=== PATIENT | male | born 1945 | race Caucasian/White ===

== ENCOUNTER 2024-07-05 23:47 | Inpatient (IN) | payer OTHER, SELFPAY ==
[2024-07-05 20:41] LABS: Glucose - Point of Care 111 mg/dl (70-99)
[2024-07-05 20:42] VITALS: BP 137/90
[2024-07-05 20:49] VITALS: BMI 43.3
[2024-07-05 20:53] LABS: % Basophils 0.5 % (0-2); % Eosinophils 2.2 % (0-6); % Immature Granulocytes 0.1 % (0-0.5); % Lymphocytes 27.7 % (20.5-51.1); % Monocytes 8.6 % (1.7-9.3); % Neutrophils 60.9 % (42.2-75.2); Absolute Eosinophils 0.2 10^3/uL (0-0.7); Absolute Lymphocytes 2.2 10^3/uL (1.2-3.4); Absolute Monocytes 0.7 10^3/uL (0.1-0.6); Absolute Neutrophils 4.9 10^3/uL (1.4-6.5); Hematocrit 40.2 % (39.0-52.0); Hemoglobin 13.7 g/dL (13.0-18.0); Mean Corp Hgb Conc. 34.1 g/dL (33.0-37.0); Mean Corpuscular Hgb 30.6 pg (27.0-31.0); Mean Corpuscular Volume 89.9 fL (80.0-94.0); Mean Platelet Volume 10.2 fL (7.4-10.4); Nucleated Red Blood Cells % 0 % (-); Platelet Count 162 10^3/uL (130-400); Red Blood Cell Count 4.47 10^6/uL (4.70-6.10); Red Cell Dist. Width 13.4 % (11.5-14.5); White Blood Cell Count 8.1 10^3/uL (4.8-10.8)
[2024-07-05 21:00] VITALS: BP 123/71
[2024-07-05 21:16] LABS: NT-proBNP 944 pg/ml; Troponin I 0.032 ng/ml
[2024-07-05 21:40] VITALS: BP 147/93
[2024-07-05 21:58] VITALS: BP 142/89
[2024-07-05 22:13] LABS: Free T4 0.91 ng/dl (0.78-2.19)
[2024-07-05 22:17] LABS: ALT (SGPT) 26 U/L (0-50); AST (SGOT) 28 U/L (17-59); Albumin 4.4 g/dl (3.5-5.0); Alkaline Phosphatase 63 U/L (38-126); Blood Urea Nitrogen 29 mg/dl (9-20); Calcium 9.8 mg/dl (8.4-10.2); Carbon Dioxide 20 mmol/L (22-30); Chloride 105 mmol/L (98-107); Estimated Creatinine Clearance 82 ml/min; Glucose 114 mg/dl (70-99); Magnesium 2.1 mg/dl (1.6-2.3); Potassium 3.9 mmol/L (3.5-5.1); Sodium 139 mmol/L (135-145); Total Bilirubin 0.5 mg/dl (0.2-1.3); Total Protein 7.1 g/dl (6.3-8.2); eGFR > 60.00
[2024-07-05 22:30] VITALS: BP 159/90
[2024-07-05 22:54] LABS: Urine Albumin Trace (Neg - Trace); Urine Bilirubin Negative (Negative); Urine Character Clear (Clear); Urine Color Yellow; Urine Glucose Negative (Negative); Urine Ketone Negative (Negative); Urine Leukocyte 2+ (Negative); Urine Nitrite Positive (Negative); Urine Occult Blood Negative (Negative); Urine Specific Gravity 1.025 (<1.030); Urine Urobilinogen Negative (Neg - 1+)
[2024-07-05 23:01] LABS: Urine Bacteria Moderate (Negative); Urine Red Blood Cell 0-2 /HPF (0-2)
--- NOTE | 2024-07-05 23:05 | ED.GENMED ---
History of Present Illness
General
Chief Complaint: Dizziness
Time Seen by Provider: 07/05/24 21:54
History of Present Illness
History of Present Illness:
Patient is a 78-year-old man who is otherwise healthy presenting to the emergency department with a near syncopal event. 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 He states that after he was done
working him and his coworker sat down he had 2 shots of tequila and drank 2 beers. He then became lightheaded dizzy and almost passed out. Medics arrived he was diaphoretic with a blood pressure in the 80s. They gave him a liter of fluids. His
blood sugar was normal. He states that he is unsure as to why he passed out. He did not eat much throughout the day. However when he did arrive it was noticed that his heart rate was in the 40s. He also notes he has been having worsening edema
to his bilateral lower extremities for the past few weeks. He is also been having some urinary frequency and does have history of UTI. No chest pain. No shortness of breath. No problems with his thyroid. He only drinks occasionally. No long
car rides or long plane rides. No hemoptysis travel or malignancy.
Past History
Past History
ED Past Medical History: None
ED Past Surgical History: None
Social History
Tobacco: Non-smoker
Alcohol: None
Drug: None
Phy Exam
Physical Exam
Physical Exam:
GENERAL: in no acute distress
HEENT: normocephalic, extraocular movements intact, moist oral mucosa
NECK: normal inspection
RESPIRATORY: no respiratory distress, fine crackles at the bases
CARDIOVASCULAR: Irregularly irregular in the 50s
ABDOMEN/: soft, non-distended, non-tender to palpation, no rebound or guarding
EXTREMITIES: non-tender, mild edema bilaterally at the ankles
NEUROLOGIC: awake and alert, moves all extremities
SKIN: warm
Course
Orders/Labs/Results
Orders:
Orders
07/05/24 20:39
Electrocardiogram (*1) Urgent
Reason for Study: Chest Pain
EKG- Treatment ONCE
07/05/24 20:48
BNP [NT-proBNP] Urgent
Complete Blood Count/With Diff Urgent
Free T4 Urgent
TSH Reflex To Free T4 Urgent
Comment: ADD ON
Troponin I Routine
07/05/24 20:58
CXR2 [CR Chest - 2 Views ] Urgent
Comment:
Reason For Exam: DIZZY
07/05/24 20:59
Add On- LAB Urgent
Comments:: MAGNESIUM, TSH WITH REFLEX TO FREE T4
Tests Added?: MAGNESIUM, TSH WITH REFLEX TO FREE T4
07/05/24 21:45
Comprehensive Metabolic Panel Urgent
Magnesium Urgent
07/05/24 22:43
Urinalysis Reflex To Culture Urgent
Date Specimen was Collected: 07/05/24
Time Specimen was Collected: 22:38
Urine Microscopic Reflex Cult Urgent
Urine Culture Urgent
[place] Source: U
Specimen Description:
Date Specimen was Collected: 07/05/24
Time Specimen was Collected: 22:38
07/05/24 23:09
CefTRIAXone [Rocephin] 1,000 mg IV NOW STA
Abnormal Lab Results
07/05/24 07/05/24 07/05/24
20:39 20:48 21:45
RBC 4.47 L 10^6/uL
(4.70-6.10)
Absolute Monos (auto) 0.7 H 10^3/uL
(0.1-0.6)
Carbon Dioxide 20 L mmol/L
(22-30)
BUN 29 H mg/dl
(9-20)
Glucose 114 H mg/dl
(70-99)
TSH (Reflex) 10.50 H uIU/ml
(0.47-4.68)
Urine Nitrite (Reflex)
Leukocyte Esterase Rfl
Urine WBC (Reflex)
Urine Bacteria (Reflex)
POC Glucose 111 H mg/dl
(70-99)
07/05/24
22:43
RBC
Absolute Monos (auto)
Carbon Dioxide
BUN
Glucose
TSH (Reflex)
Urine Nitrite (Reflex) Positive A
(Negative)
Leukocyte Esterase Rfl 2+ A
(Negative)
Urine WBC (Reflex) 11-15 A /HPF
(0-5)
Urine Bacteria (Reflex) Moderate A
(Negative)
POC Glucose
07/05/24 20:48
07/05/24 21:45
Vital Signs
Initial and Last Documented VS:
Initial Vital Signs
Temp Pulse Resp BP Pulse Ox
98.1 F 53 18 137/90 97
07/05/24 20:42 07/05/24 20:42 07/05/24 20:42 07/05/24 20:42 07/05/24 20:42
Last Documented Vital Signs
Temp Pulse Resp BP Pulse Ox
98.1 F 66 16 142/89 97
07/05/24 20:42 07/05/24 22:00 07/05/24 22:00 07/05/24 21:58 07/05/24 22:00
MDM/Problems Addressed
Differential Diagnosis Includes:
Patient is a 78-year-old man presenting to the emergency department with a near syncopal episode as well as leg swelling and urinary frequency. His vitals are notable for being in A-fib per my interpretation of the monitor with a heart rate
anywhere from the 40s to the 60s. Exam does show crackles at the bases as well as edema. Concern for new onset heart failure, A-fib, thyroid disease, metabolic abnormality, UTI. The syncope certainly could have been the A-fib with slow RVR or
could be orthostatics or secondary to the alcohol. History and exam not consistent with PE as he is not hypoxic or tachycardic or hypotensive and does not have any risk factors. Blood work per my interpretation is notable for elevated BNP. Will
obtain delta troponin.. His urine is positive. Given he is been having urinary frequency will treat. Chest x-ray per my interpretation with some vascular congestion. Patient will need admission. discussed the case with hospitalist who accepted
patient to their service.
*Critical Care Note
Total Time (30-74mins, 75-104mins- exclusive of procedures): Not Applicable
ED Attending Note
-
Portions of this chart may have been created with voice recognition software.� Occasional wrong word or��sound alike� substitutions may have occurred due to the inherent limitations of voice recognition software.
Discharge Plan
Departure
Patient Disposition: Admit
Date of Disposition: 07/05/24
Time of Disposition: 23:08
Presentation/result/management discussed w/ accepting MD/DO: Hospitalist
Discharge Problem:
Pulmonary edema, A-fib, Acute UTI
Prescriptions:
No Action
No Current Medications
0
Referrals:
Kristi Laurent PA-C [Family Provider] -
Interventions
Interventions:
*Risk Screen - Suicide Last Done: 07/05/24 20:50
*General Assessment Last Done: 07/05/24 20:50
*Neglect/Abuse Screening Last Done: 07/05/24 20:50
ED- Fall Risk Assessment Last Done: 07/05/24 20:50
*ED COVID-19 Vaccine History Last Done: 07/05/24 20:50
Discharge Date and Time
Print Language: FRENCH
--- NOTE | 2024-07-05 23:23 | EDRN ---
Patients Daughter Jessica Boudreaux contact # [phone]
--- NOTE | 2024-07-05 23:29 | HPS.HSE ---
Family Physician
-
Family Physician: Kristi Laurent
Chief Complaint
-
almost passed out or passed out
History of Present Illness
78M No sig PMHx seen at ER for near syncopal event.
- he is drinking all day in the heat, then was done working sat down he had 2 shots of tequila and drank 2 beers.
- became lightheaded dizzy and almost passed out.
- upon EMS arrival he was diaphoretic with a blood pressure in the 80s - EMS gave 1 liter of fluids.
- BG was normal
- unsure as to why he passed out
- He did not eat much throughout the day
- noticed that his heart rate was in the 40s
- worsening edema to his bilateral lower extremities for the past few weeks
- some urinary frequency with HX UTI.
ROS:
No chest pain. No shortness of breath. No problems with his thyroid. H
No long car rides or long plane rides.
No hemoptysis travel or malignancy.
Medical History
Past Medical History
Past Medical History: Reports None
Past Surgical History: Reports None
Social History
Tobacco: Non-smoker
Alcohol: Occasional
Drug: None
Personal: Single
Living: Alone
Family History
Family History: Not pertinent
Allergies / Home Medications
Allergies reflects when Allergies were last updated in [employer].
Home Medications with original date entered in [employer]
Allergy/Medication List:
Allergies
Allergy/AdvReac Type Severity Reaction Status Date / Time
No Known Allergies Allergy Verified 07/05/24 20:42
Home Medications
No Meds [No Current Medications] 07/05/24
Review of Systems
-
Constitutional: Reports No Symptoms
EENT: Reports No Symptoms
Respiratory: Reports No Symptoms
Cardiac: Reports Syncope (near syncope ); Denies Chest Pain
Abdomen/GI: Reports No Symptoms
: Reports No Symptoms
Musculoskeletal: Reports No Symptoms
Skin: Reports No Symptoms
Neurological: Reports Dizzy
Endocrine: Reports No Symptoms
Hematologic/Lymphatic: Reports No Symptoms
Psych: Reports No Symptoms
Physical Exam
Vital Signs
Vital Signs
Temp Pulse Resp BP Pulse Ox
98.1 F 66 16 142/89 97
07/05/24 20:42 07/05/24 22:00 07/05/24 22:00 07/05/24 21:58 07/05/24 22:00
Physical Exam
General: Well Developed, Well Nourished and No Apparent Distress
HEENT: NormoCephalic, Moist mucous membranes and Atraumatic
Respiratory: Clear
Cardiac: S1/S2 and Regular Rhythm; No Murmur or Rub
GI: Soft, Non Tender, Non Distended and Normal Bowel Sounds; No Organomegaly
Rectal: Deferred by Provider
Musculoskeletal: No Clubbing, No Cyanosis and No Edema
Skin: No Rash
Neuro: Nonfocal/grossly intact
Laboratory Results
-
07/05/24 20:48
07/05/24 21:45
Laboratory Results
Total Bilirubin 0.5 mg/dl (0.2-1.3) 07/05/24 21:45
AST 28 U/L (17-59) 07/05/24 21:45
ALT 26 U/L (0-50) 07/05/24 21:45
Alkaline Phosphatase 63 U/L (38-126) 07/05/24 21:45
Troponin I 0.032 ng/ml 07/05/24 20:48
Data Reviewed
-
Diagnostic Radiology: Report Reviewed by me
Medical Tests (Nuc Med, Echo, EKG etc): Report Reviewed by me
Lab Data: Labs Reviewed by me
Impression/Plan
-
Data
Unremarkable CBC
CO2 20
BUN 29
Cr 1.1
eGFR > 60
TPNI 0.032
pro BNP 994
UA POS WCC , Mod bacteria
CXR: No acute disease of the chest.
EKG
ATRIAL FIBRILLATION WITH SLOW VENTRICULAR RESPONSE
INCOMPLETE RIGHT BUNDLE BRANCH BLOCK
LEFT ANTERIOR FASCICULAR BLOCK
MINIMAL VOLTAGE CRITERIA FOR LVH, MAY BE NORMAL VARIANT ( R in aVL )
INFERIOR INFARCT , AGE UNDETERMINED
ABNORMAL ECG
WHEN COMPARED WITH ECG OF 03-MAY-1993 07:45,
ATRIAL FIBRILLATION HAS REPLACED SINUS RHYTHM
LEFT ANTERIOR FASCICULAR BLOCK IS NOW PRESENT
NON-SPECIFIC CHANGE IN ST SEGMENT IN INFERIOR LEADS
NONSPECIFIC T WAVE ABNORMALITY NOW EVIDENT IN ANTEROLATERAL LEADS
10/18/23 TTE
Normal left ventricular size, wall thickness and systolic function.
No regional wall motion abnormalities are seen.
Estimated ejection fraction is 50- 55% by Swenson's method of discs. Diastolic function indeterminate.
Normal right ventricular size and function.
Mild tricuspid regurgitation. Estimated pulmonary artery pressure of 30-35 mmHg.
ASSESSMENT & PLAN
Syncope vs near syncope suspect cardiac syncope vs. vasovagal in setting ETOH and environenmtal heat exposure
POS prodromal symptoms plus hypotension and bradycardia
Prior Nl LVEF and Nl RV function
- No hemodynamically significant valvular patholgy
- supportive care with IVF
- fall precaution
New onset AF with slow VR
- DCA card evaluation for AC
Abn first TPNI suspect NIMI > NSTEMI
- no CP. No SoB
- Trend TPNI
- await Card evaluate
Abnormal UA suggestive UTI
- UCX
- agree with IV CFTZ
Obesity
DVT Px: LMWH
Code: Full
IP TLM
[2024-07-05 23:30] VITALS: BP 140/101
[2024-07-05] MEDS: ROCEPHIN 1000 MG IV (23:30)
[2024-07-06] VITALS (8 sets, daily range): BP systolic 127–182; BP diastolic 66–89; BMI 42.4; BMI 42.6
[2024-07-06 01:20] LABS: Troponin I 0.026 ng/ml
[2024-07-06] MEDS: NSS 1000 IV ×2 (01:33→13:55)
--- NOTE | 2024-07-06 02:06 | PTCARENOTE ---
Pt arrived to floor via stretcher from the ED. Pt AAOx3. Pt able to ambulate from stretcher into room without difficulty. Pt denies any lightheadedness/ dizziness. HR in the 60's-70's in Afib on the monitor. POX 94% on RA. Lungs dec @ bases, MADSEN. +
bowel, round obese abd. +2 LE edema. Red warm LE. Weak pedal pulses. Left hand int capped. Right hand int infusing NSS@80ml/hr. Pt reports urinary urgency/ frequency. Pt given Urinal for accurate I/O. pt instructed to ring call [facility] for help. Will
continue to monitor.
[2024-07-06 03:17] LABS: TSH Reflex To Free T4 7.48 uIU/ml (0.47-4.68)
--- NOTE | 2024-07-06 07:40 | CON.CAR ---
Addendum entered and electronically signed by Celso Alex MD 07/06/24 12:15:
78-year-old man with history of PAF, morbid obesity admitted on the with syncope after working in the heat, found to be in atrial fibrillation with hypotension and relative bradycardia. proBNP 944, with superimposed UTI
PMH: PAF, morbid obesity, history of UTIs,
PSH/SH/FH: Reviewed
Allergies none
Medications at admission none
ROS: Negative except as above
Current meds: Ceftriaxone, apixaban 5 mg twice daily
Pulse 58, 179/88, weight 137.7 kg, morbidly obese, no acute distress, head neck exam unremarkable, lungs clear, bradycardic, regular murmurs JVD hard to assess, abdomen morbidly obese, 2+ edema
EKG atrial fibrillation, slow ventricular response, RSR prime, LVH, left anterior fascicular block
Hemoglobin 14.6, BUN and creatinine 23 and 0.9, TSH 7.48, normal free T4, UTI, Troponin 0.028, proBNP 944
Impression:
Syncope, possibly multifactorial, need to rule out symptomatic bradycardia from A-fib
suspected persistent atrial fibrillation with intrinsic AV violetta disease and slow ventricular response
Probable sleep apnea
Plan:
He agrees to anticoagulation. He presents with that could be multifactorial, with underlying AV violetta disease but with the primary special events driver is dehydration and alcohol.
He is bradycardic on telemetry with pauses up to 2.5 seconds, but at this point nothing would mandate pacemaker implantation. We will continue to observe.
Will need to decide on rate control versus rhythm control. Rhythm control could become complex given his AV violetta disease, and he may prefer a simpler strategy. I have
He agrees to anticoagulation.
If he does not have symptomatic bradycardia here in hospital, he will need ambulatory telemetry and may need a LINQ.
Consider diuretics, if we say that he has HFpEF we could consider SGLT2 inhibitor.
Await echocardiography.
Will perform nocturnal pulse oximetry. I suspect he has sleep apnea.
Original Note:
Consultation
Consultation Request
Date/Time Consultation Requested: 07/05/2024
Date/Time Consultation Performed: 07/06/2024
Requesting Provider: Dr. Branham
Performing Provider: Vida Heller PA-C for Dr. Celso Alex
Reason for Consultation: Atrial fibrillation
Medical History
-
History of Present Illness:
Patient is a 78-year-old male with past medical history of paroxysmal atrial fibrillation, reluctant to take anticoagulation, morbid obesity, BPH and osteoarthritis who presented to emergency department 07/05/2024 with syncopal event. 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 After he was done work he had 2 shots of tequila and 2 beers. He became dizzy, lightheaded and had a near syncopal event. He denies losing consciousness. EMS was
called and he was found him to be hypotensive with systolic blood pressure in 80s. Patient was provided IV fluids with improvement of blood pressure. EKG on arrival to emergency department showed atrial fibrillation with slow ventricular response.
Troponin x 2 was undetectable. Patient admits to intermittent edema over the last several weeks. Chest x-ray showed mild cardiomegaly, no pleural effusion. ProBNP 944. He also complained of urinary frequency and UA showed UTI. TSH noted to be
7.48.
Patient admits he has gained significant weight since COVID- pandemic. He denies chest pain, shortness of breath, dizziness or lightheadedness, palpitations, orthopnea or PND on a regular basis.
PMH:
Paroxysmal atrial fibrillation
Morbid obesity
BPH
Osteoarthritis
H/o UTI
Past Medical History
Past Medical History: Other (See HPI)
Past Surgical History: Orthopedic (Meniscus repair)
Social History
Tobacco: Former Smoker (remote as teenager and in 20's)
Alcohol: Occasional
Drug: None
Personal:
Living: With Family
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
Family History
Family History: CAD (Mother CAD/PA)
Allergies / Home Medications
Allergy/AdvReac Type Severity Reaction Status Date / Time
No Known Allergies Allergy Verified 07/05/24 20:42
�Medication �Instructions �Recorded �Confirmed �Type
No Meds [No Current Medications] 07/05/24 07/05/24 History
Review of Systems
-
History Source: Patient
All other systems: Negative unless noted
Physical Exam
Vital Signs
Temp Pulse Resp BP Pulse Ox
97.7 F 75 18 138/85 93
07/06/24 03:12 07/06/24 03:12 07/06/24 03:12 07/06/24 03:12 07/06/24 03:12
GEN: No distress, awake, Ox3, sitting up in bed
HEENT: supple, anicteric, mmm
LUNGS: CTA, no wheezes/rales bilaterally
CV: Irregularly irregular, S1/S2, no murmur, rub or gallop
ABD: Obese, soft, BS+, NT/ND
EXT: No edema, clubbing or cyanosis
NEURO: Gross non-focal
SKIN: Warm, dry, pink
Lab Results
Troponin I Cancelled 07/06/24 17:08
Frl-K-Itueopstnre Pept 944 pg/ml 07/05/24 20:48
Impression / Plan
-
Family Physician: Kristi Laurent
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
Impression:
Presented 07/05/2024 with dizziness/lightheadedness, near syncope
Hypotension likely from dehydration, resolved
UTI
Atrial fibrillation with slow ventricular response
Hypothyroid
Paroxysmal atrial fibrillation
Morbid obesity
BPH
Osteoarthritis
History of UTIs
Echo 10/18/2023: EF 50 to 55%. Mild TR with PAP 30 to 35 mmHg
Plan:
-Presented 07/05/2024 with dizziness/lightheadedness, near syncope and hypotension. Most likely secondary to dehydration. Symptoms and BP improved with IV fluids
-Patient found to be in atrial fibrillation with slow ventricular response. Per review of outpatient records patient has a history of PAF. Unclear if this is persistent or paroxysmal. He has declined anticoagulation in past with primary care
physician.
-Heart rates remain slow/rate controlled despite being on any rate lowering agents. Review of telemetry overnight shows frequent pauses which are asymptomatic greatest 3 seconds. Continue to monitor trend heart rates while awake.
-[id number] score 2 (age >75). Would recommend initiation of anticoagulation. After discussion with patient he is agreeable. Will have case management to cost analysis for OAC.
-Discussed options of rate control and remaining in atrial fibrillation, versus initiation of antiarrhythmic drug therapy versus ablation. For now will start with rate control and anticoagulation. Could consider elective cardioversion after he has
been on anticoagulation for 4 weeks.
-Echo from September 2023 showed preserved ejection fraction and no significant valvular disease.
-Suspect component of obstructive sleep apnea. Admits to gaining over 100 pounds since COVID-19 pandemic. Would benefit from evaluation for obstructive sleep apnea as an outpatient
-TSH elevated at 10.5, repeated 7.48, free T4 0.91. Defer treatment to primary service. May benefit from initiation of Synthroid
-UA suspicious for UTI. Getting antibiotics per primary service
HPI 07/06/2024:
Patient is a 78-year-old male with past medical history of paroxysmal atrial fibrillation, reluctant to take anticoagulation, morbid obesity, BPH and osteoarthritis who presented to emergency department 07/05/2024 with syncopal event. 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 After he was done work he had 2 shots of tequila and 2 beers. He became dizzy, lightheaded and had a near syncopal event. He denies losing consciousness. EMS was
called and he was found him to be hypotensive with systolic blood pressure in 80s. Patient was provided IV fluids with improvement of blood pressure. EKG on arrival to emergency department showed atrial fibrillation with slow ventricular response.
Troponin x 2 was undetectable. Patient admits to intermittent edema over the last several weeks. Chest x-ray showed mild cardiomegaly, no pleural effusion. ProBNP 944. He also complained of urinary frequency and UA showed UTI. TSH noted to be
7.48.
Patient admits he has gained significant weight since COVID- pandemic. He denies chest pain, shortness of breath, dizziness or lightheadedness, palpitations, orthopnea or PND on a regular basis.
Data Reviewed
-
EKG: Report Reviewed by me, Discussed with Physician and Discussed with Patient
Radiology: Report Reviewed by me, Discussed with Physician and Discussed with Patient
Labs: Labs Reviewed by me, Discussed with Physician and Discussed with Patient
Old Records: Reviewed
[2024-07-06 09:24] LABS: Hematocrit 42.1 % (39.0-52.0); Hemoglobin 14.6 g/dL (13.0-18.0); Mean Corp Hgb Conc. 34.7 g/dL (33.0-37.0); Mean Corpuscular Hgb 31.9 pg (27.0-31.0); Mean Corpuscular Volume 92.1 fL (80.0-94.0); Mean Platelet Volume 10.6 fL (7.4-10.4); Platelet Count 168 10^3/uL (130-400); Red Blood Cell Count 4.57 10^6/uL (4.70-6.10); Red Cell Dist. Width 13.4 % (11.5-14.5)
[2024-07-06 09:54] LABS: Troponin I 0.028 ng/ml
[2024-07-06 10:05] LABS: Blood Urea Nitrogen 23 mg/dl (9-20); Calcium 9.5 mg/dl (8.4-10.2); Carbon Dioxide 21 mmol/L (22-30); Chloride 105 mmol/L (98-107); Estimated Creatinine Clearance 99 ml/min; Glucose 110 mg/dl (70-99); Potassium 4.3 mmol/L (3.5-5.1); Sodium 140 mmol/L (135-145); eGFR > 60.00
[2024-07-06] MEDS: ELIQUIS 5 MG PO ×2 (10:18→20:40)
--- NOTE | 2024-07-06 11:49 | CM ---
Addendum entered by Carol Richardson 07/06/24 12:49:
procedure manager reviewed patient's chart and met with patient and patient lives with his spouse and youngest son in a 2 story home, no steps to enter, patient is independent with adl's and ambulation, no dme, classification case manager reached out to patient's
insurance [employer] as requested by cardiology and cost of medication is $47 per month. Eliquis coupon provided to patient.
PCP: Kristi Laurent
Pharmacy: [facility] in [place]
Plan; Home with family when stable.
Original Note:
Cost of Eliquis is a copay of $47, and Xarelto is copay of $47.
--- NOTE | 2024-07-06 12:30 | CM ---
Milka calhoun nreviewed patient's chart and met with patient and eddie webster with his spouse and youngest son in a 2 story home, no steps to enter, eddie is indepdent with adl's and ambulation, no dme, milka walker nreached out to patient's
insurance [employer] as requested by cardiology and cost of medication is $47 per month. Elibrittanyis coupon provided to patient.
PCP: Kristi Laurent
Pharmacy: [facility] in [place]
Plan; Home with family when stable.
--- NOTE | 2024-07-06 18:40 | W.PN.HOSP.TC ---
Today's Communication/Plan
-
await Ur Cx results
timing of dc beyond obtaining Ur cx will be as per Cardio
Assessment / Plan
Assessment / Plan
Syncope vs near syncope suspect cardiac syncope vs. vasovagal in setting ETOH and heat exposure
POS prodromal symptoms plus hypotension and bradycardia
Prior Nl LVEF and Nl RV function
- No hemodynamically significant valvular pathology
- supportive care with IVF
- fall precaution
New onset AF with slow VR
- DCA card evaluation for AC
input of Dr. Alex appreciated
Trop 0.032-->0.026-->0.028
- no CP. No SoB
Abnormal UA suggestive UTI
- UCX pending
- agree with IV CFTZ
Obesity
DVT Px: LMWH
Code: Full
IP TLM
Anticipated Discharge: 24 - 48 hours
Subjective/Interval History
-
Date of Service: July 06, 2024
Awake, alert
Objective Data
-
Labs:
Laboratory Results
07/06/24
09:12
WBC 6.0
Hgb 14.6
Hct 42.1
Plt Count 168
Sodium 140
Potassium 4.3
Chloride 105
Carbon Dioxide 21 L
BUN 23 H
Creatinine 0.9
Glucose 110 H
Calcium 9.5
Vital Signs:
Vital Signs
Temp Pulse Resp BP Pulse Ox
97.7 F 67 18 150/87 96
07/06/24 15:34 07/06/24 15:34 07/06/24 15:34 07/06/24 15:34 07/06/24 15:34
I&O
07/05/24 07/06/24 07/07/24
06:59 06:59 06:59
Intake Total 640 / 640 480 / 480
Output Total 600 / 600 250 / 250
Balance 40 / 40 230 / 230
Review of Systems
-
History Source: Patient and Coordinated Provider
Constitutional: Denies Fever
EENT: Reports No Symptoms Reported
Respiratory: Reports No Symptoms
Cardiac: Reports No Symptoms; Denies Chest Pain
Abdomen/GI: Reports No Symptoms
Neuro: Reports No Symptoms
Physical Exam
-
General: Well Developed, Well Nourished and No Apparent Distress
HEENT: Normocephalic, Atraumatic and Moist Mucous Membranes
Respiratory: Clear to Auscultation; Negative Wheezes, Rales or Rhonchi
Cardiac: S1/S2 and Irregular Rhythm
GI: Nontender and Nondistended
Neuro: Awake, Alert and Oriented
--- NOTE | 2024-07-06 22:08 | RESPNOTE ---
Patient placed on nocturnal pulse oximetry as ordered. Starting SpO2 98% on room air.
[2024-07-06] MEDS: ROCEPHIN 1000 MG IV (23:18)
[2024-07-06] MEDS: STERILE WATER FOR INJECTION 10 ML IV (23:18)
[2024-07-07 03:50] VITALS: BP 152/84
[2024-07-07 05:23] VITALS: BMI 42.6
[2024-07-07 07:00] VITALS: BP 142/71
[2024-07-07] MEDS: ELIQUIS 5 MG PO ×2 (08:22→21:20)
[2024-07-07 11:00] VITALS: BP 178/80
--- NOTE | 2024-07-07 11:48 | W.PN.HOSP.TC ---
Addendum entered and electronically signed by Jason Durham MD 07/07/24 12:07:
call received from dgt and fully reviewed situation
Jessica [phone]
Original Note:
Today's Communication/Plan
-
await Ur C&S
await further input from cardio
Assessment / Plan
Assessment / Plan
Syncope vs near syncope suspect cardiac syncope vs. vasovagal in setting ETOH and heat exposure
POS prodromal symptoms plus hypotension and bradycardia
Prior Nl LVEF and Nl RV function
- No hemodynamically significant valvular pathology
- supportive care with IVF
- fall precaution
New onset AF with slow VR
- DCA card evaluation for AC
input of Dr. Alex appreciated
Echo just completed, not yet resulted
Trop 0.032-->0.026-->0.028
- no CP. No SoB
Abnormal UA suggestive UTI
- UCX still pending
- agree with IV CFTZ
Obesity
attempted to call dgt x2 to update, no answer, left message
DVT Px: LMWH
Code: Full
IP TLM
Anticipated Discharge: 24 - 48 hours
Subjective/Interval History
-
Date of Service: July 07, 2024
Awake, alert, answering questions
Objective Data
-
Vital Signs:
Vital Signs
Temp Pulse Resp BP Pulse Ox
98.3 F 57 20 178/80 97
07/07/24 11:00 07/07/24 11:00 07/07/24 11:00 07/07/24 11:00 07/07/24 11:00
I&O
07/06/24 07/07/24 07/08/24
06:59 06:59 06:59
Intake Total 640 / 640 800 / 800
Output Total 600 / 600 250 / 250
Balance 40 / 40 550 / 550
Review of Systems
-
History Source: Patient and Coordinated Provider
Constitutional: Denies Fever
EENT: Reports No Symptoms Reported
Respiratory: Reports No Symptoms
Cardiac: Reports No Symptoms; Denies Chest Pain
Abdomen/GI: Reports No Symptoms
Neuro: Reports No Symptoms
Physical Exam
-
General: Well Developed, Well Nourished and No Apparent Distress
HEENT: Normocephalic, Atraumatic and Moist Mucous Membranes
Respiratory: Clear to Auscultation; Negative Wheezes, Rales or Rhonchi
Cardiac: S1/S2 and Irregular Rhythm
GI: Nontender and Nondistended
Musculoskeletal: Edema, Right Lower Extrem (trace) and Edema, Left Lower Extrem (trace)
Neuro: Awake, Alert and Oriented
--- NOTE | 2024-07-07 14:08 | W.PN.CARDCBS ---
Addendum entered and electronically signed by Sourav Rojas MD 07/07/24 16:53:
I saw and examined the patient.
The Chief Load Dispatcher's note was reviewed and I agree with the note.
Comment: Briefly, 78-year-old man past medical history of persistent atrial fibrillation who presents following an episode of presyncope
By history patient tells me that he was working in the heat and also consumed alcohol prior to his episode of lightheadedness and dizziness, no eron syncope by his report
By telemetry here has been in persistent atrial fibrillation with slow ventricular response nocturnal pauses of 3 seconds seen
Transthoracic echocardiogram here with ventricular size and function and no significant
Recommend starting anticoagulation for cardioembolic prophylaxis of A-fib
We can arrange for outpatient cardioversion after he has been reliably anticoagulated for 3 to 4 weeks
Consideration of outpatient teletypesetter monitor on discharge
Rest per Laurence Cain
Original Note:
Today's Communication / Plan
-
Echo normal
Remains in rate controlled Afib
Impression / Plan
-
Family Physician: Kristi Laurent
Process Inspector: None prior to admission
Impression:
Presented 07/05/2024 with dizziness/lightheadedness, near syncope
Hypotension likely from dehydration, resolved
UTI
Atrial fibrillation with slow ventricular response on admission
Hypothyroid
Paroxysmal to persistent atrial fibrillation
Morbid obesity
BPH
Osteoarthritis
History of UTIs
Echo 10/18/23: EF 50 to 55%. Mild TR with PAP 30 to 35 mmHg
Echo 07/07/24: EF 55-60%, mild conc LVH, normal RV size and function, mild MR
Plan:
-Syncope on admission in the setting of increased environmental temperatures, reduced PO intake and ETOH intake.
-Orthostatic VS not checked
-Echo without WMA or significant valve disease
-No significant pause on tele review by me. Afib HRs are in the 50s to 60s without rate controlling meds.
-Afib seen on tele, patient with a h/o paroxysmal Afib and previously declined OAC. OAC recommended and patient now agreeable so Eliquis 5 mg BID (age 78, Cre 0.9, wt 138 kg). Appreciate help of CM on checking cost of Eliquis $47/month.
-Could consider elective cardioversion after he has been on anticoagulation for 4 weeks.
-Suspect component of CLYDE and CLYDE management will help with long-term rhythm control of Afib. Admits to gaining over 100 lbs since .
-TSH elevated at 10.5, repeated 7.48, free T4 0.91. Defer treatment to primary service. May benefit from initiation of Synthroid
-Troponin levels normal
HPI 07/06/2024:
Patient is a 78-year-old male with past medical history of paroxysmal atrial fibrillation, reluctant to take anticoagulation, morbid obesity, BPH and osteoarthritis who presented to emergency department 07/05/2024 with syncopal event. 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 After he was done work he had 2 shots of tequila and 2 beers. He became dizzy, lightheaded and had a near syncopal event. He denies losing consciousness. EMS was
called and he was found him to be hypotensive with systolic blood pressure in 80s. Patient was provided IV fluids with improvement of blood pressure. EKG on arrival to emergency department showed atrial fibrillation with slow ventricular response.
Troponin x 2 was undetectable. Patient admits to intermittent edema over the last several weeks. Chest x-ray showed mild cardiomegaly, no pleural effusion. ProBNP 944. He also complained of urinary frequency and UA showed UTI. TSH noted to be
7.48.
Patient admits he has gained significant weight since . He denies chest pain, shortness of breath, dizziness or lightheadedness, palpitations, orthopnea or PND on a regular basis.
Progress Note - Process Inspector
Subjective
Date of Service: July 07, 2024
No chest pain
Objective
Labs:
07/06/24 09:12
07/06/24 09:12
Labs
Hgb 14.6 g/dL (13.0-18.0) 07/06/24 09:12
Hct 42.1 % (39.0-52.0) 07/06/24 09:12
Plt Count 168 10^3/uL (130-400) 07/06/24 09:12
Sodium 140 mmol/L (135-145) 07/06/24 09:12
Potassium 4.3 mmol/L (3.5-5.1) 07/06/24 09:12
BUN 23 mg/dl (9-20) H 07/06/24 09:12
Creatinine 0.9 mg/dL (0.7-1.3) 07/06/24 09:12
Glucose 110 mg/dl (70-99) H 07/06/24 09:12
Troponins
07/05/24 07/06/24 07/06/24
20:48 00:28 01:08
Troponin I 0.032 0.026 Cancelled
07/06/24 07/06/24 07/06/24
09:08 09:12 16:30
Troponin I Cancelled 0.028 Cancelled
07/06/24
17:08
Troponin I Cancelled
Vital Signs and I&O:
Vital Signs
Temp Pulse Resp BP Pulse Ox
98.3 F 57 20 178/80 97
07/07/24 11:00 07/07/24 11:00 07/07/24 11:00 07/07/24 11:00 07/07/24 11:00
Vital Signs
Temp Pulse Resp BP Pulse Ox
98.3 F 57 20 178/80 97
07/07/24 11:00 07/07/24 11:00 07/07/24 11:00 07/07/24 11:00 07/07/24 11:00
Intake & Output
10/13/07/06/24 07/07/24 07/08/24
06:59 06:59 06:59 06:59
Intake Total 640 / 640 800 / 800
Output Total 600 / 600 250 / 250
Balance 40 / 40 550 / 550
Physical Exam
Physical Exam
GEN: AAO x3
HEENT: mmm
LUNGS: No audible wheeze
CV: Afib on tele
ABD: ND
EXT: No edema B/L
NEURO: Gross non-focal
SKIN: No rash
[2024-07-07 15:00] VITALS: BP 117/56
--- NOTE | 2024-07-07 17:26 | CM ---
Spoke with pt at bedside .
Pt is aware of Eliquis cost $47.00 He has first month free Eliquis coupon .
Unsure if pt could use $10.0/ month coupon also.
Offered VN he declined need.
PLAN Home no needs
[2024-07-07 19:27] VITALS: BP 169/99
[2024-07-07 23:04] VITALS: BP 180/87
[2024-07-08] MEDS: STERILE WATER FOR INJECTION 10 ML IV (00:06)
[2024-07-08] MEDS: ROCEPHIN 1000 MG IV (00:07)
[2024-07-08 00:21] VITALS: BP 117/61
[2024-07-08 04:03] VITALS: BP 162/93
[2024-07-08 04:28] VITALS: BMI 42.5
--- NOTE | 2024-07-08 05:48 | DOWNTIME ---
There was a [employer] In[employer] Downtime on 07/08/2024 from 0100 to 07/08/2024 at 0355. Downtime documentation of patient's care, including medication administrations, has been reconciled in the electronic record per guidelines. Refer to the
patient's paper chart under the miscellaneous tab to see printed paper medication records and downtime forms.
[2024-07-08 07:00] VITALS: BP 137/81
[2024-07-08 07:50] VITALS: BMI 42.5
[2024-07-08] MEDS: ELIQUIS 5 MG PO (08:40)
[2024-07-08 11:00] VITALS: BP 152/76
--- NOTE | 2024-07-08 12:46 | W.PN.HOSP.TC ---
Today's Communication/Plan
-
dc now
Assessment / Plan
Assessment / Plan
Syncope vs near syncope suspect cardiac syncope vs. vasovagal in setting ETOH and heat exposure
POS prodromal symptoms plus hypotension and bradycardia
Prior Nl LVEF and Nl RV function
- No hemodynamically significant valvular pathology
- fall precaution
walking around halls with no symptoms
New onset AF with slow VR
- DCA card evaluation for AC
input of Dr. Alex appreciated
Echo: Normal left ventricular size and systolic function. No regional wall motion
abnormalities are seen. LV ejection fraction is 55-60% by Swenson's method of
discs. Mild concentric left ventricular hypertrophy. Diastolic function
indeterminate due to atrial fibrillation.
Normal right ventricular size. Normal right ventricular systolic function.
Moderately dilated left atrium.
Mild mitral regurgitation.
Estimated pulmonary artery pressure of 30-35 mmHg. Assuming a right atrial
pressure of 3 mmHg.
Trop 0.032-->0.026-->0.028
- no CP. No SoB
Abnormal UA suggestive UTI
- UCX mixed onel
- change to oral abx
Obesity
reviewed with Jessica pulido yesterday and again today
DVT Px: LMWH
Code: Full
dc to home
see dictated note
More than 30 minutes spent in discharge including
Final examination of the patient
Summarizing hospital stay
Instructions for continuing care to all relevant caregivers
Preparation of discharge records, prescriptions, and referral forms
Total time spent (in minutes): 45 minutes
Anticipated Discharge: Today
Subjective/Interval History
-
Date of Service: July 08, 2024
Feels well, anxiously awaiting dc
Objective Data
-
Vital Signs:
Vital Signs
Temp Pulse Resp BP Pulse Ox
97.9 F 55 20 152/76 97
07/08/24 11:00 07/08/24 11:00 07/08/24 11:00 07/08/24 11:00 07/08/24 11:00
I&O
07/07/24 07/08/24 07/09/24
06:59 06:59 06:59
Intake Total 800 / 800 2039
Output Total 250 / 250
Balance 550 / 550 2039
Review of Systems
-
History Source: Patient and Coordinated Provider
Constitutional: Denies Fever
EENT: Reports No Symptoms Reported
Respiratory: Reports No Symptoms
Cardiac: Reports No Symptoms; Denies Chest Pain
Abdomen/GI: Reports No Symptoms
Neuro: Reports No Symptoms
Physical Exam
-
General: Well Developed, Well Nourished and No Apparent Distress
HEENT: Normocephalic, Atraumatic and Moist Mucous Membranes
Respiratory: Clear to Auscultation; Negative Wheezes, Rales or Rhonchi
Cardiac: S1/S2 and Irregular Rhythm
GI: Nontender and Nondistended
Musculoskeletal: Edema, Right Lower Extrem (trace) and Edema, Left Lower Extrem (trace)
Neuro: Awake, Alert and Oriented
--- NOTE | 2024-07-08 13:04 | CM ---
Chart reviewed and patient is for possible discharge to home today, no needs.
Plan; Home no needs.
--- NOTE | 2024-07-08 13:37 | W.DS.TRANS ---
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
-
Discharge Instructions:
Sleep Apnea Risk High
Discharge Diagnosis/Procedures Atrial Fibrillation, UTI
Diet As tolerated
Activity No strenuous activity
Driving Restrictions Not until seen by your Dr
Bathing Restrictions None
Blood Work CBC, BMP, Urine in 1-2 weeks
Others Tests -The cardiology office is arranging for a 5 day
monitor to be mailed to you. When you are
finished wearing the monitor it can be mailed
back to the cardiology office in the postage
paid box.
Instructions:
Stand-Alone Forms:
Changes to Home Medications: Yes
Discharge Medications:
DC Medications w/original date entered in [employer]
apixaban 5 mg tablet (Eliquis) 5 mg PO BID Blood clot prevention/tx #60 tabs 07/08/24
cefuroxime axetil 500 mg tablet 500 mg PO Q12H 10 days #20 tabs 07/08/24
polyethylene glycol 3350 17 gram oral powder packet (HealthyLax) 17 g PO DAILYPRN PRN constipation #0 ea 07/08/24
Home Medication Changes
Eliquis is new
Ceftin for next 10 days
Pending Results: No
--- NOTE | 2024-07-08 17:37 | W.PN.CARDCBS ---
Today's Communication / Plan
-
We will arrange for outpatient monitor and cardiology follow up
New to OAC
Consideration of outpatient DCCV
Impression / Plan
-
Family Physician: Kristi Laurent
Aircraft Fuselage Framer: None prior to admission
Impression:
Presented 07/05/2024 with dizziness/lightheadedness, near syncope
Hypotension likely from dehydration, resolved
UTI
Atrial fibrillation with slow ventricular response on admission
Hypothyroid
Paroxysmal to persistent atrial fibrillation
Morbid obesity
BPH
Osteoarthritis
History of UTIs
Echo 10/18/23: EF 50 to 55%. Mild TR with PAP 30 to 35 mmHg
Echo 07/07/24: EF 55-60%, mild conc LVH, normal RV size and function, mild MR
Plan:
-Presenting with presyncope, denies LOC to me
-By history may have been precipitated by dehydration - was working in the heat prior and reports reduced PO intake as well as ETOH intake
-Possible that bradycardia may have contributed as HRs have been 40s-60s in AFib here on tele, but no significant pauses seen
-Echo here was unremarkable
-Plan for outpatient site monitor
-In regards to AFib he is rate controlled off AV violetta rickey
-New to OAC, explained the risks/benefits
-Consider DCCV in 3-4wks
Stable cardiac status
Outpatient follow-up has been arranged
HPI 07/06/2024:
Patient is a 78-year-old male with past medical history of paroxysmal atrial fibrillation, reluctant to take anticoagulation, morbid obesity, BPH and osteoarthritis who presented to emergency department 07/05/2024 with syncopal event. 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 After he was done work he had 2 shots of tequila and 2 beers. He became dizzy, lightheaded and had a near syncopal event. He denies losing consciousness. EMS was
called and he was found him to be hypotensive with systolic blood pressure in 80s. Patient was provided IV fluids with improvement of blood pressure. EKG on arrival to emergency department showed atrial fibrillation with slow ventricular response.
Troponin x 2 was undetectable. Patient admits to intermittent edema over the last several weeks. Chest x-ray showed mild cardiomegaly, no pleural effusion. ProBNP 944. He also complained of urinary frequency and UA showed UTI. TSH noted to be
7.48.
Patient admits he has gained significant weight since COV- pandemic. He denies chest pain, shortness of breath, dizziness or lightheadedness, palpitations, orthopnea or PND on a regular basis.
Progress Note - Aircraft Fuselage Framer
Subjective
Date of Service: July 08, 2024
NAOE. Feels well. No lightheadedness or dizziness and no syncope. No CP or SOB.
Objective
Labs:
07/06/24 09:12
07/06/24 09:12
Labs
Hgb 14.6 g/dL (13.0-18.0) 07/06/24 09:12
Hct 42.1 % (39.0-52.0) 07/06/24 09:12
Plt Count 168 10^3/uL (130-400) 07/06/24 09:12
Sodium 140 mmol/L (135-145) 07/06/24 09:12
Potassium 4.3 mmol/L (3.5-5.1) 07/06/24 09:12
BUN 23 mg/dl (9-20) H 07/06/24 09:12
Creatinine 0.9 mg/dL (0.7-1.3) 07/06/24 09:12
Glucose 110 mg/dl (70-99) H 07/06/24 09:12
Troponins
07/05/24 07/06/24 07/06/24
20:48 00:28 01:08
Troponin I 0.032 0.026 Cancelled
07/06/24 07/06/24 07/06/24
09:08 09:12 16:30
Troponin I Cancelled 0.028 Cancelled
07/06/24
17:08
Troponin I Cancelled
Vital Signs and I&O:
Vital Signs
Temp Pulse Resp BP Pulse Ox
97.9 F 55 20 152/76 97
07/08/24 11:00 07/08/24 11:00 07/08/24 11:00 07/08/24 11:00 07/08/24 11:00
Vital Signs
Temp Pulse Resp BP Pulse Ox
97.9 F 55 20 152/76 97
07/08/24 11:00 07/08/24 11:00 07/08/24 11:00 07/08/24 11:00 07/08/24 11:00
Intake & Output
07/06/24 07/07/24 07/08/24 07/09/24
06:59 06:59 06:59 06:59
Intake Total 640 / 640 800 / 800 2039
Output Total 600 / 600 250 / 250
Balance 40 / 40 550 / 550 2039
Physical Exam
Physical Exam
Gen: NAD, AAOx3
HEENT: NC/AT, sclera anicteric
Neck: No JVD
CV: Irregular, NL s1/s2
Lungs: CTAB
Abd: S/ND
Ext: Nonpitting LE edema
Skin: Warm, dry
Neuro: Non-focal
== END 2024-07-08 14:22 | disposition home or self-care (01) | DRG 690 ==
LOC: 4 WEST ACU 23:47
PROVIDERS: ADMITTING PHYSICIAN Internal Medicine; ATTENDING PHYSICIAN Internal Medicine; EMERGENCY PHYSICIAN Student in an Organized Health Care Education/Training Program; FAMILY PHYSICIAN Physician Assistant; OTHER PHYSICIAN Internal Medicine Cardiovascular Disease
DX: N39.0 Urinary tract infection, site not specified (principal); J81.1 Chronic pulmonary edema; Z68.41 Body mass index [BMI] 40.0-44.9, adult; I48.0 Paroxysmal atrial fibrillation; E03.9 Hypothyroidism, unspecified; E66.01 Morbid (severe) obesity due to excess calories; E86.0 Dehydration; G47.33 Obstructive sleep apnea (adult) (pediatric); M19.90 Unspecified osteoarthritis, unspecified site; N40.0 Benign prostatic hyperplasia without lower urinary tract symptoms; N41.9 Inflammatory disease of prostate, unspecified; I95.9 Hypotension, unspecified; Z87.891 Personal history of nicotine dependence; Z87.440 Personal history of urinary (tract) infections; Z82.49 Family history of ischemic heart disease and other diseases of the circulatory system
CPT/HCPCS: 71046; 80048; 80053; 81003; 81015; 82962; 83735; 83880; 84439; 84443; 84484; 85025; 85027; 87086; 93005; 93306; 94762; 96374; 99285

== ENCOUNTER 2024-08-27 07:18 | Day surgery (SDC) | payer OTHER, SELFPAY ==
--- NOTE | 2024-08-27 09:58 | ITS.CL.CARDI ---
[employer] - Cardioversion
Cardioversion
Procedure Report:
Procedure: Direct current electrical cardioversion
Pre-operative diagnosis: Persistent atrial fibrillation
Post-operative diagnosis: Persistent atrial fibrillation status post DC cardioversion to sinus rhythm
Anesthesia: MAC
Attending Physician: Sourav Rojas MD
Procedure Description: The patient was brought to the electrophysiology laboratory in the fasting state. Adherence to anticoagulation regimen was confirmed. Informed consent was obtained from the patient prior to the start of the procedure.
Electrodes were placed on the patient and connected to an external defibrillator. Monitoring of blood pressure, ECG tracings, and pulse oximetry was initiated. The pads were applied to the patient in the anterior and posterior positions. The patient
was sedated by the anesthesiologist. A 200 joule biphasic synchronized shock was delivered to the patient under MAC anesthesia. Sinus rhythm was successfully restored. The patient recovered uneventfully from MAC anesthesia. There were no immediate
post-procedure complications. The patient left the lab in good condition. The attending physician was present throughout the entire procedure.
Impression: Successful direct current cardioversion with quaker of sinus rhythm after one 200 joule biphasic synchronized shock.
== END 2024-08-27 10:15 | disposition home or self-care (01) ==
LOC: CATH 07:18
PROVIDERS: ATTENDING PHYSICIAN Internal Medicine Cardiovascular Disease; FAMILY PHYSICIAN Physician Assistant; OTHER PHYSICIAN Internal Medicine Cardiovascular Disease
DX: I48.19 Other persistent atrial fibrillation (principal); I44.4 Left anterior fascicular block; I34.0 Nonrheumatic mitral (valve) insufficiency; Z87.891 Personal history of nicotine dependence; Z79.01 Long term (current) use of anticoagulants
CPT/HCPCS: 92960; 93005